=== PATIENT | female | born 1940 | race Caucasian/White ===

== ENCOUNTER 2021-01-22 14:19 | Outpatient (CLI) | payer MEDICARE ==
[2021-01-22 16:21] LABS: #Basophils 0.1 10x3/uL (0.0-0.2); #Eosinphils 0.1 10x3/uL (0.0-0.5); #Monocytes 0.4 10x3/uL (0.0-1.1); #Neutrophils 5.2 10x3/uL (1.5-8.4); %Basophils 0.8 % (0.0-2.0); %Eosinophils 1.4 % (0.0-6.0); %Lymphocytes 25.6 % (18.0-47.0); %Monocytes 4.8 % (0.0-10.0); Hemoglobin 13.5 g/dL (12.0-15.5); Mean Corpuscular HGB CONC 32.1 g/dL (32.0-36.0); Mean Corpuscular Hemoglobin 31.2 pg (27.0-33.0); Mean Corpuscular Volume 97.2 fl (81.6-98.3); Mean Platelet Volume 9.9 fl (7.4-10.4); Platelet Count 294 10x3/uL (150-450); RBC Distribution Width 15.2 % (11.5-14.5); Red Blood Cell (RBC) Count 4.33 10x6/uL (3.90-5.03); White Blood Cell (WBC) Count 7.7 10x3/uL (3.5-10.5)
[2021-01-22 16:33] LABS: Anion Gap 13 mmol/L (10-20); BUN (Urea Nitrogen) 12 mg/dL (9.8-20.1); Calc. Creatinine Clearance 0 mL/min (70-130); Calcium 9.4 mg/dL (7.8-10.44); Carbon Dioxide 28 mmol/L (23-31); Chloride 104 mmol/L (98-107); Glucose 113 mg/dL (83-110); Potassium 4.4 mmol/L (3.5-5.1); Sodium 141 mmol/L (136-145)
[2021-01-23 01:56] LABS: SARS-CoV-2 PCR by NAA Not Detected (NotDetected)
== END 2021-01-22 14:20 | disposition home or self-care (01) ==
LOC: LABBT 14:19
PROVIDERS: ATTEND Internal Medicine Cardiovascular Disease
DX: Z01.818 Encounter for other preprocedural examination (principal); Z20.822 Contact with and (suspected) exposure to COVID-19
CPT/HCPCS: 80048; 85025; U0003; U0005

== ENCOUNTER 2021-01-28 13:08 | Day surgery (SDC) | payer MEDICARE ==
[2021-01-27 12:32] VITALS: BMI 24.0
[2021-01-28] MEDS ORDERED: PROPOFOL 20 ML ONE (14:49)
[2021-01-28] MEDS ORDERED: Fentanyl 100 MCG/2 ML VIAL ONE (14:49)
[2021-01-28] MEDS ORDERED: Hydrocortisone 1% Cream 30 GM TUBE ONE (16:00)
== END 2021-01-28 16:12 | disposition home or self-care (01) ==
LOC: CCL 13:08
PROVIDERS: ATTEND Internal Medicine Cardiovascular Disease
PROC: 5A2204Z Restoration of Cardiac Rhythm, Single (ICD-10-PCS; principal; 2021-01-28)
PROC: B24BZZ4 Ultrasonography of Heart with Aorta, Transesophageal (ICD-10-PCS; 2021-01-28)
DX: I48.0 Paroxysmal atrial fibrillation (principal); I08.3 Combined rheumatic disorders of mitral, aortic and tricuspid valves; I70.0 Atherosclerosis of aorta; I45.4 Nonspecific intraventricular block; E78.00 Pure hypercholesterolemia, unspecified; G25.0 Essential tremor; I25.10 Atherosclerotic heart disease of native coronary artery without angina pectoris; I47.1 Supraventricular tachycardia; E78.5 Hyperlipidemia, unspecified; M79.7 Fibromyalgia; J45.909 Unspecified asthma, uncomplicated; M06.9 Rheumatoid arthritis, unspecified; Z85.3 Personal history of malignant neoplasm of breast; Z86.711 Personal history of pulmonary embolism; Z86.718 Personal history of other venous thrombosis and embolism; Z79.01 Long term (current) use of anticoagulants; Z79.899 Other long term (current) drug therapy; Z88.0 Allergy status to penicillin
CPT/HCPCS: 92960; 93005; 93010; 93312; J2704; J3010

== ENCOUNTER 2021-03-28 11:15 | Outpatient (CLI) | payer MEDICARE ==
[2021-03-28 12:42] LABS: Hemoglobin 14.3 g/dL (12.0-15.5); Mean Corpuscular HGB CONC 31.8 g/dL (32.0-36.0); Mean Corpuscular Hemoglobin 30.9 pg (27.0-33.0); Mean Corpuscular Volume 97.2 fl (81.6-98.3); Mean Platelet Volume 9.9 fl (7.4-10.4); Platelet Count 312 10x3/uL (150-450); Red Blood Cell (RBC) Count 4.63 10x6/uL (3.90-5.03)
[2021-03-28 12:57] LABS: INR-International Normal Ratio 1.1; PTT 29.3 sec (22.0-33.0); Prothrombin Time 11.9 sec (9.5-12.1)
[2021-03-28 13:03] LABS: Anion Gap 15 mmol/L (10-20); BUN (Urea Nitrogen) 9 mg/dL (9.8-20.1); Calc. Creatinine Clearance 0 mL/min (70-130); Calcium 9.4 mg/dL (7.8-10.44); Carbon Dioxide 28 mmol/L (23-31); Chloride 104 mmol/L (98-107); Glucose 94 mg/dL (83-110); Potassium 4.6 mmol/L (3.5-5.1); Sodium 142 mmol/L (136-145)
[2021-03-29 17:03] LABS: SARS-CoV-2 PCR by NAA Not Detected (NotDetected)
== END 2021-03-28 11:16 | disposition home or self-care (01) ==
LOC: LABBT 11:15
PROVIDERS: ATTEND Internal Medicine Cardiovascular Disease
DX: Z01.818 Encounter for other preprocedural examination (principal); Z51.81 Encounter for therapeutic drug level monitoring; I48.0 Paroxysmal atrial fibrillation; I51.9 Heart disease, unspecified; Z79.899 Other long term (current) drug therapy; Z20.822 Contact with and (suspected) exposure to COVID-19
CPT/HCPCS: 80048; 85027; 85610; 85730; 93005; U0003; U0005; 93010

== ENCOUNTER 2021-04-02 05:52 | Observation (INO) | payer MEDICARE ==
[2021-04-02] MEDS ORDERED: Protamine Sulfate 50 MG/5 ML VIAL ONE (06:46)
[2021-04-02] MEDS ORDERED: Heparin 10,000 UNITS/ 10 ML VIAL ONE ×2 (06:46→10:14)
[2021-04-02] MEDS ORDERED: Isoproterenol 0.2 MG/1 ML AMP ONE (06:46)
[2021-04-02] MEDS ORDERED: Heparin 25,000 units/D5W 500 ML ONE (06:46)
[2021-04-02] MEDS ORDERED: Fentanyl 100 MCG/2 ML VIAL ONE ×3 (07:07→15:33)
[2021-04-02] MEDS ORDERED: Midazolam HCl 2 mg/2 ml Vial ONE (07:36)
[2021-04-02] MEDS ORDERED: Rocuronium Bromide 10 MG/ML (10ML VIAL) ONE (08:42)
[2021-04-02] MEDS ORDERED: PROPOFOL 200 MG/20 ML VIAL ONE (08:42)
[2021-04-02] MEDS ORDERED: Dexamethasone 20 MG/5 ML VIAL ONE (08:42)
[2021-04-02] MEDS ORDERED: Glycopyrrolate 0.2 MG/ML 5 ML SYRINGE ONE (08:42)
[2021-04-02] MEDS ORDERED: Lidocaine 1% PF 5 ML VIAL ONE (08:42)
[2021-04-02] MEDS ORDERED: PHENYLEPHRINE-NS 100 MCG/ML 10 ML SYRINGE ONE (08:42)
[2021-04-02] MEDS ORDERED: Ondansetron PF 4 MG/2 ML Vial ONE (08:42)
[2021-04-02] MEDS ORDERED: SUMAtriptan Succinate 50 MG TAB PO PRN (12:42)
[2021-04-02] MEDS ORDERED: HYDROcodone/Acetaminophen 10/325 mg Tablet PO PRN (12:43)
[2021-04-02] MEDS ORDERED: diphenhydrAMINE 25 MG CAP PO PRN (12:44)
[2021-04-02] MEDS: Ketorolac Tromethamine 30 MG/ML VIAL IVP PRN (18:14)
[2021-04-02 18:29] VITALS: BMI 23.9
[2021-04-02] MEDS ORDERED: Docusate 100 MG CAP PO SCH (21:00)
[2021-04-02] MEDS ORDERED: Primidone 50 MG TAB PO SCH (21:00)
[2021-04-02] MEDS ORDERED: Gabapentin 300 MG CAP PO SCH (21:00)
[2021-04-02] MEDS ORDERED: Atorvastatin Calcium 40 MG TAB PO SCH (21:00)
[2021-04-02] MEDS ORDERED: Saccharomyces boulardii 250 MG CAP PO SCH (21:00)
[2021-04-02] MEDS: Apixaban 5 MG TAB PO SCH (21:30)
[2021-04-02] MEDS: HYDROcodone/Acetaminophen 10/325 mg Tablet PO PRN (21:31)
[2021-04-03] MEDS: Ketorolac Tromethamine 30 MG/ML VIAL IVP PRN ×2 (00:22→06:12)
[2021-04-03] MEDS ORDERED: Metoprolol Tartrate 50 MG TAB PO SCH (09:00)
[2021-04-03] MEDS: Apixaban 5 MG TAB PO SCH (09:22)
[2021-04-03] MEDS: HYDROcodone/Acetaminophen 10/325 mg Tablet PO PRN (09:24)
[2021-04-03 12:25] VITALS: BP 115/71; TEMP 98.6
== END 2021-04-03 12:21 | disposition home or self-care (01) ==
LOC: CCL 05:52 → 2NO 11:44
PROVIDERS: ADMIT Internal Medicine Cardiovascular Disease; ATTEND Internal Medicine Cardiovascular Disease
PROC: B244ZZZ Ultrasonography of Right Heart (ICD-10-PCS; principal; 2021-04-02)
PROC: 02583ZZ Destruction of Conduction Mechanism, Percutaneous Approach (ICD-10-PCS; 2021-04-02)
PROC: 02K83ZZ Map Conduction Mechanism, Percutaneous Approach (ICD-10-PCS; 2021-04-02)
PROC: 4A023FZ Measurement of Cardiac Rhythm, Percutaneous Approach (ICD-10-PCS; 2021-04-02)
PROC: 4A0234Z Measurement of Cardiac Electrical Activity, Percutaneous Approach (ICD-10-PCS; 2021-04-02)
PROC: 5A2204Z Restoration of Cardiac Rhythm, Single (ICD-10-PCS; 2021-04-02)
DX: I48.19 Other persistent atrial fibrillation (principal); I48.92 Unspecified atrial flutter; I51.7 Cardiomegaly; I27.20 Pulmonary hypertension, unspecified; I34.0 Nonrheumatic mitral (valve) insufficiency; M06.9 Rheumatoid arthritis, unspecified; I25.10 Atherosclerotic heart disease of native coronary artery without angina pectoris; J45.909 Unspecified asthma, uncomplicated; M79.7 Fibromyalgia; E78.5 Hyperlipidemia, unspecified; G25.0 Essential tremor; Z86.711 Personal history of pulmonary embolism; Z86.718 Personal history of other venous thrombosis and embolism; Z79.01 Long term (current) use of anticoagulants; Z79.899 Other long term (current) drug therapy; Z88.0 Allergy status to penicillin; Z88.8 Allergy status to other drugs, medicaments and biological substances
CPT/HCPCS: 85347 ×2; 93005 ×2; 93613; 93623; 93656; 93657; 93662; C1732 ×2; C1759; C1776; 93010; 96374; 96376; G0378; J1100; J1644; J1885; J2250; J2405; J2704; J2720; J3010

== ENCOUNTER 2021-05-23 10:10 | Outpatient (CLI) | payer MEDICARE ==
[2021-05-23 11:59] LABS: Hemoglobin 13.8 g/dL (12.0-15.5); Mean Corpuscular HGB CONC 32.5 g/dL (32.0-36.0); Mean Corpuscular Hemoglobin 31.4 pg (27.0-33.0); Mean Corpuscular Volume 96.4 fl (81.6-98.3); Mean Platelet Volume 10.5 fl (7.4-10.4); Platelet Count 308 10x3/uL (150-450); RBC Distribution Width 13.2 % (11.5-14.5); White Blood Cell (WBC) Count 8.1 10x3/uL (3.5-10.5)
[2021-05-23 12:06] LABS: INR-International Normal Ratio 1.1; PTT 32.2 sec (22.0-33.0); Prothrombin Time 12.4 sec (9.5-12.1)
[2021-05-23 12:08] LABS: Anion Gap 15 mmol/L (10-20); BUN (Urea Nitrogen) 12 mg/dL (9.8-20.1); Calc. Creatinine Clearance 0 mL/min (70-130); Calcium 9.5 mg/dL (7.8-10.44); Carbon Dioxide 29 mmol/L (23-31); Chloride 100 mmol/L (98-107); Glucose 92 mg/dL (83-110); Sodium 140 mmol/L (136-145)
[2021-05-23 19:25] LABS: SARS-CoV-2 PCR by NAA Not Detected (NotDetected)
== END 2021-05-23 10:11 | disposition home or self-care (01) ==
LOC: LABBT 10:10
PROVIDERS: ATTEND Internal Medicine Cardiovascular Disease
DX: Z01.812 Encounter for preprocedural laboratory examination (principal); I48.0 Paroxysmal atrial fibrillation; Z20.822 Contact with and (suspected) exposure to COVID-19
CPT/HCPCS: 80048; 85027; 85610; 85730; U0003; U0005

== ENCOUNTER 2021-10-17 09:37 | Inpatient (IN) | payer MEDICARE ==
[2021-10-17] MEDS ORDERED: Magnesium 2 GM/50 ML BAG (IN WATER) ONE (09:52)
[2021-10-17] MEDS ORDERED: Digoxin 0.5 MG/2 ML AMP ONE (09:52)
[2021-10-17] MEDS ORDERED: Metoprolol Tartrate 5 MG/5 ML VIAL ONE (09:55)
[2021-10-17 10:02] LABS: #Basophils 0.1 thou/uL (0.0-0.2); #Eosinphils 0.1 thou/uL (0.0-0.7); #Lymphocytes 1.1 thou/uL (1.20-3.40); #Monocytes 0.7 thou/uL (0.11-0.59); #Neutrophils 7.3 thou/uL (1.40-6.50); %Basophils 1.2 % (0.0-1.0); %Eosinophils 0.7 % (0.0-10.0); %Lymphocytes 11.4 % (21.0-51.0); %Monocytes 7.9 % (0.0-10.0); %Neutrophils 78.8 % (42.0-75.0); Hemoglobin 13.8 g/dL (12.0-16.0); Mean Corpuscular HGB CONC 32.2 g/dL (32.0-36.0); Mean Corpuscular Hemoglobin 31.6 pg (27.0-31.0); Mean Corpuscular Volume 98.2 fL (78.0-98.0); Mean Platelet Volume 7.9 fL (7.4-10.4); Platelet Count 250 thou/uL (130-400); RBC Distribution Width 13.8 % (11.5-14.5); Red Blood Cell (RBC) Count 4.37 mill/uL (4.20-5.40); White Blood Cell (WBC) Count 9.3 thou/uL (4.8-10.8)
[2021-10-17 10:23] LABS: ALT (SGPT) 12 U/L (8-55); AST (SGOT) 31 U/L (5-34); Albumin 3.6 g/dL (3.4-4.8); Alkaline Phosphatase 120 U/L (40-110); Anion Gap 17 mmol/L (10-20); BUN (Urea Nitrogen) 15 mg/dL (9.8-20.1); Calc. Creatinine Clearance 0 mL/min (70-130); Calcium 9.2 mg/dL (7.8-10.44); Carbon Dioxide 20 mmol/L (23-31); Chloride 100 mmol/L (98-107); Estimated GFR 89; Glucose 85 mg/dL (83-110); Magnesium 1.7 mg/dL (1.6-2.6); Potassium 4.2 mmol/L (3.5-5.1); Protein, Total 6.6 g/dL (5.8-8.1); Sodium 133 mmol/L (136-145)
[2021-10-17] MEDS ORDERED: Azithromycin 500 MG VIAL ONE (10:25)
[2021-10-17] MEDS ORDERED: Cefepime 2 GM VIAL ONE (10:25)
[2021-10-17 10:32] LABS: CK (CPK) 19 U/L (29-168); Lipase 29 U/L (8-78)
[2021-10-17 10:45] LABS: CKMB 0.3 ng/mL (0-6.6)
[2021-10-17 11:08] LABS: Bilirubin Negative (Negative); Blood, Urine Negative (Negative); Clarity Clear (Clear); Glucose, Urine (Dipstick) Normal (Negative); Ketone, Urine Negative (Negative); Leukocyte Negative Leu/uL (Negative); Nitrite Negative (Negative); Protein, Urine (Dipstick) Negative (Neg-Trace); Specific Gravity, Urine 1.017 (1.002-1.036); Urobilinogen Normal mg/dL (Less than 2); pH, Urine 5.5 (5.0-9.0)
[2021-10-17] MEDS ORDERED: Aspirin Chewable 81 MG TAB ONE (11:26)
[2021-10-17 13:08] LABS: Lactic Acid 2.4 mmol/L (0.5-2.2)
[2021-10-17] MEDS ORDERED: Acetaminophen 500 MG TAB PO PRN (13:20)
[2021-10-17] MEDS ORDERED: Labetalol HCl 100 MG/20 ML VIAL SLOW IVP PRN (13:20)
[2021-10-17] MEDS ORDERED: Benzonatate 100 MG CAP PO PRN (13:20)
[2021-10-17] MEDS ORDERED: CARBAMAZEPINE 200 MG PO SCH (13:20)
[2021-10-17] MEDS ORDERED: Ondansetron PF 4 MG/2 ML Vial IVP PRN (13:20)
[2021-10-17] MEDS ORDERED: Ondansetron ODT 4 MG TAB PO PRN (13:20)
[2021-10-17] MEDS ORDERED: Furosemide 20 MG/2 ML VIAL SLOW IVP SCH (13:30)
[2021-10-17 14:34] LABS: SARS-CoV-2 NAA Rapid Test Not Detected (NotDetected)
[2021-10-17] MEDS ORDERED: Iopamidol-370 76% 500 ML 1 ML ONE (15:26)
[2021-10-17] MEDS ORDERED: traMADol HCl 50 MG TAB PO PRN (17:02)
[2021-10-17] MEDS: Diltiazem HCl 125 MG in Premix Bag 1 BAG IVPB SCH (17:14)
[2021-10-17] MEDS ORDERED: traMADol HCl 50 MG TAB PO SCH (17:15)
[2021-10-17 17:17] LABS: Troponin I 0.097 ng/mL (< 0.028)
[2021-10-17] MEDS: HYDROcodone/Acetaminophen 10/325 mg Tablet PO PRN (18:26)
[2021-10-17 19:51] VITALS: BMI 21.4
[2021-10-17] MEDS: Gabapentin 300 MG CAP PO SCH (20:50)
[2021-10-17] MEDS: Famotidine 20 MG TAB PO SCH (20:51)
[2021-10-17] MEDS: Apixaban 5 MG TAB PO SCH (20:51)
[2021-10-17] MEDS: Flecainide 50 MG TAB PO SCH (20:51)
[2021-10-17] MEDS: Primidone 50 MG TAB PO SCH (20:57)
[2021-10-17] MEDS ORDERED: Primidone 50 MG TAB PO SCH (21:00)
[2021-10-17] MEDS ORDERED: diphenhydrAMINE 25 MG CAP PO PRN (22:10)
[2021-10-18 04:39] LABS: #Eosinphils 0.2 thou/uL (0.0-0.7); #Lymphocytes 0.8 thou/uL (1.20-3.40); #Monocytes 0.6 thou/uL (0.11-0.59); #Neutrophils 5.7 thou/uL (1.40-6.50); %Basophils 0.4 % (0.0-1.0); %Eosinophils 2.5 % (0.0-10.0); %Lymphocytes 11.4 % (21.0-51.0); %Monocytes 8.3 % (0.0-10.0); %Neutrophils 77.4 % (42.0-75.0); Hemoglobin 13.4 g/dL (12.0-16.0); Mean Corpuscular HGB CONC 31.3 g/dL (32.0-36.0); Mean Platelet Volume 8.2 fL (7.4-10.4); Platelet Count 228 thou/uL (130-400); RBC Distribution Width 13.8 % (11.5-14.5); Red Blood Cell (RBC) Count 4.19 mill/uL (4.20-5.40); White Blood Cell (WBC) Count 7.4 thou/uL (4.8-10.8)
[2021-10-18] MEDS: HYDROcodone/Acetaminophen 10/325 mg Tablet PO PRN ×3 (04:52→20:53)
[2021-10-18 04:58] LABS: ALT (SGPT) 14 U/L (8-55); AST (SGOT) 28 U/L (5-34); Alkaline Phosphatase 107 U/L (40-110); Anion Gap 13 mmol/L (10-20); BUN (Urea Nitrogen) 17 mg/dL (9.8-20.1); Bilirubin, Total 1.4 mg/dL (0.2-1.2); Calc. Creatinine Clearance 75 mL/min (70-130); Calcium 8.5 mg/dL (7.8-10.44); Carbon Dioxide 26 mmol/L (23-31); Chloride 100 mmol/L (98-107); Estimated GFR 90; Globulin 2.8 g/dL (2.4-3.5); Glucose 77 mg/dL (83-110); Potassium 3.8 mmol/L (3.5-5.1); Protein, Total 5.8 g/dL (5.8-8.1); Sodium 135 mmol/L (136-145)
[2021-10-18] MEDS: Atorvastatin Calcium 40 MG TAB PO SCH (08:49)
[2021-10-18] MEDS: Flecainide 50 MG TAB PO SCH ×2 (08:49→20:52)
[2021-10-18] MEDS: Apixaban 5 MG TAB PO SCH ×2 (08:49→20:52)
[2021-10-18] MEDS: Famotidine 20 MG TAB PO SCH ×2 (08:50→20:52)
[2021-10-18] MEDS ORDERED: Furosemide 20 MG/2 ML VIAL SLOW IVP SCH (12:15)
[2021-10-18] MEDS: cefTRIAXone\\ROCEPHIN 1 GM in Sodium Chloride 0.9% 100 ML IVPB SCH (12:30)
[2021-10-18] MEDS: Azithromycin 500 MG in Sodium Chloride 0.9% 250 ML 250 ML IVPB SCH (13:13)
[2021-10-18] MEDS: Diltiazem HCl 125 MG in Premix Bag 1 BAG IVPB SCH (17:07)
[2021-10-18] MEDS: Gabapentin 300 MG CAP PO SCH (20:52)
[2021-10-18] MEDS: Primidone 50 MG TAB PO SCH (20:54)
[2021-10-19] MEDS: Famotidine 20 MG TAB PO SCH ×2 (10:36→21:20)
[2021-10-19] MEDS: Flecainide 50 MG TAB PO SCH ×2 (10:36→21:20)
[2021-10-19] MEDS: Apixaban 5 MG TAB PO SCH ×2 (10:36→21:20)
[2021-10-19] MEDS: Atorvastatin Calcium 40 MG TAB PO SCH (10:36)
[2021-10-19] MEDS: HYDROcodone/Acetaminophen 10/325 mg Tablet PO PRN ×3 (10:39→23:02)
[2021-10-19] MEDS: Azithromycin 500 MG in Sodium Chloride 0.9% 250 ML 250 ML IVPB SCH (11:27)
[2021-10-19] MEDS: Digoxin 0.5 MG/2 ML AMP SLOW IVP SCH ×3 (13:20→23:03)
[2021-10-19] MEDS: cefTRIAXone\\ROCEPHIN 1 GM in Sodium Chloride 0.9% 100 ML IVPB SCH (13:20)
[2021-10-19] MEDS: Diltiazem HCl 125 MG in Premix Bag 1 BAG IVPB SCH (18:40)
[2021-10-19] MEDS: Gabapentin 300 MG CAP PO SCH (21:20)
[2021-10-19] MEDS: Primidone 50 MG TAB PO SCH (21:21)
[2021-10-20 04:46] LABS: Hemoglobin 12.4 g/dL (12.0-16.0); Mean Corpuscular HGB CONC 32.4 g/dL (32.0-36.0); Mean Corpuscular Hemoglobin 31.8 pg (27.0-31.0); Mean Corpuscular Volume 98.1 fL (78.0-98.0); Mean Platelet Volume 8.3 fL (7.4-10.4); Platelet Count 249 thou/uL (130-400); RBC Distribution Width 13.4 % (11.5-14.5); White Blood Cell (WBC) Count 6.9 thou/uL (4.8-10.8)
[2021-10-20 05:11] LABS: Anion Gap 12 mmol/L (10-20); BUN (Urea Nitrogen) 10 mg/dL (9.8-20.1); Calc. Creatinine Clearance 88 mL/min (70-130); Calcium 8.7 mg/dL (7.8-10.44); Carbon Dioxide 28 mmol/L (23-31); Chloride 98 mmol/L (98-107); Estimated GFR 94; Glucose 111 mg/dL (83-110); Potassium 3.6 mmol/L (3.5-5.1); Sodium 134 mmol/L (136-145)
[2021-10-20] MEDS: Digoxin 0.5 MG/2 ML AMP SLOW IVP SCH (06:01)
[2021-10-20] MEDS: HYDROcodone/Acetaminophen 10/325 mg Tablet PO PRN ×2 (06:04→20:23)
[2021-10-20] MEDS ORDERED: Digoxin 0.05 MG/ML Oral Solution PO SCH (09:00)
[2021-10-20] MEDS ORDERED: Digoxin 0.125 MG TAB PO SCH (09:00)
[2021-10-20] MEDS: Flecainide 50 MG TAB PO SCH ×2 (09:08→20:24)
[2021-10-20] MEDS: Atorvastatin Calcium 40 MG TAB PO SCH (09:09)
[2021-10-20] MEDS: Apixaban 5 MG TAB PO SCH ×2 (09:09→20:24)
[2021-10-20] MEDS: Famotidine 20 MG TAB PO SCH ×2 (09:09→20:24)
[2021-10-20] MEDS: cefTRIAXone\\ROCEPHIN 1 GM in Sodium Chloride 0.9% 100 ML IVPB SCH (12:06)
[2021-10-20] MEDS: Azithromycin 500 MG in Sodium Chloride 0.9% 250 ML 250 ML IVPB SCH ×2 (12:20→13:06)
[2021-10-20] MEDS: Diltiazem HCl 125 MG in Premix Bag 1 BAG IVPB SCH (18:07)
[2021-10-20] MEDS: Gabapentin 300 MG CAP PO SCH (20:24)
[2021-10-20] MEDS: Primidone 50 MG TAB PO SCH (20:25)
[2021-10-21 05:03] LABS: Digoxin 2.33 ng/mL (0.8-2.0)
[2021-10-21] MEDS: HYDROcodone/Acetaminophen 10/325 mg Tablet PO PRN ×2 (09:26→20:05)
[2021-10-21] MEDS: Famotidine 20 MG TAB PO SCH ×2 (09:27→20:04)
[2021-10-21] MEDS: Flecainide 50 MG TAB PO SCH ×2 (09:27→20:03)
[2021-10-21] MEDS: Apixaban 5 MG TAB PO SCH ×2 (09:27→20:03)
[2021-10-21] MEDS: Atorvastatin Calcium 40 MG TAB PO SCH (09:27)
[2021-10-21] MEDS: cefTRIAXone\\ROCEPHIN 1 GM in Sodium Chloride 0.9% 100 ML IVPB SCH (11:39)
[2021-10-21] MEDS: Azithromycin 500 MG in Sodium Chloride 0.9% 250 ML 250 ML IVPB SCH (11:39)
[2021-10-21] MEDS: Diltiazem HCl 125 MG in Premix Bag 1 BAG IVPB SCH (19:40)
[2021-10-21] MEDS: Primidone 50 MG TAB PO SCH (20:04)
[2021-10-21] MEDS: Gabapentin 300 MG CAP PO SCH (20:04)
[2021-10-22 08:37] LABS: Hemoglobin 13.6 g/dL (12.0-16.0); Mean Corpuscular HGB CONC 32.2 g/dL (32.0-36.0); Mean Corpuscular Volume 99.6 fL (78.0-98.0); Mean Platelet Volume 7.9 fL (7.4-10.4); Platelet Count 283 thou/uL (130-400); RBC Distribution Width 13.1 % (11.5-14.5); Red Blood Cell (RBC) Count 4.25 mill/uL (4.20-5.40); White Blood Cell (WBC) Count 7.3 thou/uL (4.8-10.8)
[2021-10-22 08:50] LABS: Anion Gap 12 mmol/L (10-20); BUN (Urea Nitrogen) 7 mg/dL (9.8-20.1); Calc. Creatinine Clearance 77 mL/min (70-130); Calcium 9.4 mg/dL (7.8-10.44); Carbon Dioxide 29 mmol/L (23-31); Chloride 97 mmol/L (98-107); Estimated GFR 91; Glucose 89 mg/dL (83-110); Potassium 4.2 mmol/L (3.5-5.1); Sodium 134 mmol/L (136-145)
[2021-10-22] MEDS: Flecainide 50 MG TAB PO SCH ×2 (09:05→20:34)
[2021-10-22] MEDS: Atorvastatin Calcium 40 MG TAB PO SCH (09:05)
[2021-10-22] MEDS: Famotidine 20 MG TAB PO SCH ×2 (09:05→20:34)
[2021-10-22] MEDS: HYDROcodone/Acetaminophen 10/325 mg Tablet PO PRN ×2 (09:06→18:52)
[2021-10-22 09:10] LABS: Digoxin 1.04 ng/mL (0.8-2.0)
[2021-10-22] MEDS ORDERED: Heparin 25,000 units/D5W 500 ML ONE (10:15)
[2021-10-22] MEDS ORDERED: Isoproterenol 0.2 MG/1 ML AMP ONE (10:15)
[2021-10-22] MEDS ORDERED: Heparin 10,000 UNITS/ 10 ML VIAL ONE (10:15)
[2021-10-22] MEDS ORDERED: Protamine Sulfate 50 MG/5 ML VIAL ONE (10:15)
[2021-10-22] MEDS: cefTRIAXone\\ROCEPHIN 1 GM in Sodium Chloride 0.9% 100 ML IVPB SCH (11:37)
[2021-10-22] MEDS ORDERED: Enoxaparin Sodium 30 MG/0.3 ML SYRINGE ONE (13:45)
[2021-10-22] MEDS ORDERED: Enoxaparin Sodium 40 MG/0.4 ML SYRINGE ONE (13:45)
[2021-10-22] MEDS ORDERED: PROPOFOL 200 MG/20 ML VIAL ONE (13:55)
[2021-10-22] MEDS ORDERED: Apixaban 5 MG TAB PO SCH (14:00)
[2021-10-22] MEDS ORDERED: Enoxaparin Sodium 60 MG/0.6 ML SYRINGE SC SCH (14:00)
[2021-10-22] MEDS: Azithromycin 500 MG in Sodium Chloride 0.9% 250 ML 250 ML IVPB SCH (15:31)
[2021-10-22] MEDS: Gabapentin 300 MG CAP PO SCH (20:33)
[2021-10-22] MEDS: Primidone 50 MG TAB PO SCH (20:34)
[2021-10-22] MEDS: Apixaban 5 MG TAB PO SCH (20:34)
[2021-10-22] MEDS: Diltiazem HCl 125 MG in Premix Bag 1 BAG IVPB SCH (21:48)
[2021-10-23] MEDS: HYDROcodone/Acetaminophen 10/325 mg Tablet PO PRN ×3 (01:39→20:12)
[2021-10-23] MEDS: Atorvastatin Calcium 40 MG TAB PO SCH (09:30)
[2021-10-23] MEDS: Flecainide 50 MG TAB PO SCH (09:31)
[2021-10-23] MEDS: Famotidine 20 MG TAB PO SCH ×2 (09:31→20:11)
[2021-10-23] MEDS: Apixaban 5 MG TAB PO SCH ×2 (09:31→20:11)
[2021-10-23] MEDS: cefTRIAXone\\ROCEPHIN 1 GM in Sodium Chloride 0.9% 100 ML IVPB SCH (11:39)
[2021-10-23] MEDS: Azithromycin 500 MG in Sodium Chloride 0.9% 250 ML 250 ML IVPB SCH (11:39)
[2021-10-23] MEDS ORDERED: Diltiazem HCl 125 MG in Premix Bag 1 BAG IVPB SCH (12:00)
[2021-10-23] MEDS ORDERED: Furosemide 40 MG/4 ML VIAL SLOW IVP SCH (16:00)
[2021-10-23] MEDS: Primidone 50 MG TAB PO SCH (20:11)
[2021-10-23] MEDS: Cefdinir 300 MG CAP PO SCH (20:11)
[2021-10-23] MEDS: Gabapentin 300 MG CAP PO SCH (20:11)
[2021-10-24 04:39] LABS: #Basophils 0.1 thou/uL (0.0-0.2); #Eosinphils 0.4 thou/uL (0.0-0.7); #Lymphocytes 1.1 thou/uL (1.20-3.40); #Monocytes 0.9 thou/uL (0.11-0.59); #Neutrophils 4.9 thou/uL (1.40-6.50); %Basophils 1.1 % (0.0-1.0); %Eosinophils 4.8 % (0.0-10.0); %Lymphocytes 15.4 % (21.0-51.0); %Monocytes 12.2 % (0.0-10.0); %Neutrophils 66.5 % (42.0-75.0); Hemoglobin 11.5 g/dL (12.0-16.0); Mean Corpuscular HGB CONC 32.4 g/dL (32.0-36.0); Mean Corpuscular Hemoglobin 31.8 pg (27.0-31.0); Mean Corpuscular Volume 98.4 fL (78.0-98.0); Mean Platelet Volume 7.8 fL (7.4-10.4); Platelet Count 375 thou/uL (130-400); RBC Distribution Width 12.9 % (11.5-14.5); Red Blood Cell (RBC) Count 3.61 mill/uL (4.20-5.40); White Blood Cell (WBC) Count 7.4 thou/uL (4.8-10.8)
[2021-10-24 04:46] LABS: Anion Gap 11 mmol/L (10-20); BUN (Urea Nitrogen) 11 mg/dL (9.8-20.1); Calc. Creatinine Clearance 82 mL/min (70-130); Calcium 8.5 mg/dL (7.8-10.44); Carbon Dioxide 32 mmol/L (23-31); Chloride 96 mmol/L (98-107); Estimated GFR 92; Glucose 109 mg/dL (83-110); Potassium 3.7 mmol/L (3.5-5.1); Sodium 135 mmol/L (136-145)
[2021-10-24] MEDS: Furosemide 20 MG/2 ML VIAL SLOW IVP SCH ×2 (06:08→14:16)
[2021-10-24] MEDS: Cefdinir 300 MG CAP PO SCH ×2 (09:48→20:30)
[2021-10-24] MEDS: Apixaban 5 MG TAB PO SCH ×2 (09:48→20:30)
[2021-10-24] MEDS: Atorvastatin Calcium 40 MG TAB PO SCH (09:48)
[2021-10-24] MEDS: Metoprolol Tartrate 25 MG TAB PO SCH ×2 (09:48→20:29)
[2021-10-24] MEDS: Famotidine 20 MG TAB PO SCH ×2 (09:48→20:29)
[2021-10-24] MEDS ORDERED: Digoxin 0.5 MG/2 ML AMP SLOW IVP SCH ×2 (14:30→20:00)
[2021-10-24] MEDS: HYDROcodone/Acetaminophen 10/325 mg Tablet PO PRN ×2 (14:53→20:30)
[2021-10-24] MEDS: Gabapentin 300 MG CAP PO SCH (20:29)
[2021-10-24] MEDS: Primidone 50 MG TAB PO SCH (20:30)
[2021-10-25] MEDS ORDERED: Digoxin 0.5 MG/2 ML AMP SLOW IVP SCH (02:00)
[2021-10-25] MEDS: Furosemide 20 MG/2 ML VIAL SLOW IVP SCH ×2 (05:48→15:35)
[2021-10-25 08:29] LABS: #Eosinphils 0.3 thou/uL (0.0-0.7); #Lymphocytes 1.3 thou/uL (1.20-3.40); #Monocytes 0.5 thou/uL (0.11-0.59); #Neutrophils 4.6 thou/uL (1.40-6.50); %Basophils 0.6 % (0.0-1.0); %Eosinophils 4.1 % (0.0-10.0); %Monocytes 7.8 % (0.0-10.0); %Neutrophils 68.6 % (42.0-75.0); Hemoglobin 13.4 g/dL (12.0-16.0); Mean Corpuscular HGB CONC 32.2 g/dL (32.0-36.0); Mean Corpuscular Hemoglobin 31.5 pg (27.0-31.0); Mean Corpuscular Volume 97.9 fL (78.0-98.0); Mean Platelet Volume 7.9 fL (7.4-10.4); Platelet Count 471 thou/uL (130-400); RBC Distribution Width 12.8 % (11.5-14.5); Red Blood Cell (RBC) Count 4.27 mill/uL (4.20-5.40); White Blood Cell (WBC) Count 6.8 thou/uL (4.8-10.8)
[2021-10-25 08:41] LABS: BUN (Urea Nitrogen) 11 mg/dL (9.8-20.1); Calc. Creatinine Clearance 71 mL/min (70-130); Calcium 9.4 mg/dL (7.8-10.44); Estimated GFR 89; Glucose 94 mg/dL (83-110)
[2021-10-25 08:50] LABS: Anion Gap 14 mmol/L (10-20); Carbon Dioxide 38 mmol/L (23-31); Chloride 90 mmol/L (98-107); Potassium 3.8 mmol/L (3.5-5.1); Sodium 138 mmol/L (136-145)
[2021-10-25] MEDS: Cefdinir 300 MG CAP PO SCH ×2 (09:03→20:11)
[2021-10-25] MEDS: HYDROcodone/Acetaminophen 10/325 mg Tablet PO PRN (09:04)
[2021-10-25] MEDS: Atorvastatin Calcium 40 MG TAB PO SCH (09:04)
[2021-10-25] MEDS: Apixaban 5 MG TAB PO SCH ×2 (09:04→20:11)
[2021-10-25] MEDS: Metoprolol Tartrate 25 MG TAB PO SCH ×2 (09:04→20:11)
[2021-10-25] MEDS: Famotidine 20 MG TAB PO SCH ×2 (09:05→20:11)
[2021-10-25] MEDS ORDERED: Metolazone 2.5 MG TAB PO SCH (12:15)
[2021-10-25] MEDS: Gabapentin 300 MG CAP PO SCH (20:11)
[2021-10-26] MEDS: Furosemide 20 MG/2 ML VIAL SLOW IVP SCH ×2 (06:00→14:23)
[2021-10-26 07:36] LABS: BUN (Urea Nitrogen) 11 mg/dL (9.8-20.1); Calc. Creatinine Clearance 70 mL/min (70-130); Calcium 9.6 mg/dL (7.8-10.44); Estimated GFR 90; Glucose 103 mg/dL (83-110)
[2021-10-26 07:46] LABS: Anion Gap 17 mmol/L (10-20); Carbon Dioxide 35 mmol/L (23-31); Chloride 86 mmol/L (98-107); Potassium 3.1 mmol/L (3.5-5.1); Sodium 135 mmol/L (136-145)
[2021-10-26] MEDS ORDERED: Metolazone 2.5 MG TAB PO SCH (08:30)
[2021-10-26] MEDS: Metoprolol Tartrate 25 MG TAB PO SCH (08:57)
[2021-10-26] MEDS: Atorvastatin Calcium 40 MG TAB PO SCH (08:57)
[2021-10-26] MEDS: Cefdinir 300 MG CAP PO SCH (08:57)
[2021-10-26] MEDS: Apixaban 5 MG TAB PO SCH (08:58)
[2021-10-26] MEDS: Famotidine 20 MG TAB PO SCH (08:58)
[2021-10-26] MEDS ORDERED: Digoxin 0.125 MG TAB PO SCH (09:00)
[2021-10-26] MEDS ORDERED: Potassium Chloride 20 MEQ TAB PO SCH ×2 (10:45→14:00)
[2021-10-26 12:18] VITALS: TEMP 97.6
[2021-10-26 15:47] VITALS: BP 103/56
== END 2021-10-26 17:45 | disposition home health service (06) | DRG 308 ==
LOC: ERS 09:37 → ERHOLD 11:23 → 2NO 15:34
PROVIDERS: ADMIT Internal Medicine; ATTEND Internal Medicine
PROC: 5A2204Z Restoration of Cardiac Rhythm, Single (ICD-10-PCS; principal; 2021-10-22)
DX: I48.19 Other persistent atrial fibrillation (principal); J96.01 Acute respiratory failure with hypoxia; J18.9 Pneumonia, unspecified organism; I50.33 Acute on chronic diastolic (congestive) heart failure; Z20.822 Contact with and (suspected) exposure to COVID-19; E78.00 Pure hypercholesterolemia, unspecified; I11.0 Hypertensive heart disease with heart failure; M06.9 Rheumatoid arthritis, unspecified; M79.7 Fibromyalgia; J45.909 Unspecified asthma, uncomplicated; G25.0 Essential tremor; K21.9 Gastro-esophageal reflux disease without esophagitis; I95.89 Other hypotension; I70.0 Atherosclerosis of aorta; I08.0 Rheumatic disorders of both mitral and aortic valves; E78.5 Hyperlipidemia, unspecified; Z85.3 Personal history of malignant neoplasm of breast; Z90.49 Acquired absence of other specified parts of digestive tract; Z79.899 Other long term (current) drug therapy; Z79.01 Long term (current) use of anticoagulants; Z88.0 Allergy status to penicillin; Z82.49 Family history of ischemic heart disease and other diseases of the circulatory system; Z86.711 Personal history of pulmonary embolism; Z86.718 Personal history of other venous thrombosis and embolism
CPT/HCPCS: 36415; 36416; 51701; 70450; 71045; 71275; 80048; 80053; 80162; 81003; 82550; 82553; 83605; 83690; 83735; 83880; 84443; 84484; 85025; 85027; 85379; 87040; 87086; 93005; 93010; 93306; 96365; 96366; 96368; 96375; J0456; J0692; J0696; J1160; J1644; J1650; J1940; J2704; J2720; J3475; J3490; J7050; Q0162; Q9967; U0002; U0003; U0005